=== PATIENT | female | born 1970 | race Caucasian/White ===

== ENCOUNTER → 2020-12-07 | Outpatient (CLI) | payer MEDICARE, OTHER | LOC: ORTHO 13:30 | PROVIDERS: ATTEND Orthopaedic Surgery | DX: G56.03 Carpal tunnel syndrome, bilateral upper limbs (principal) | CPT/HCPCS: 20526 ==

== ENCOUNTER → 2020-12-21 | Outpatient (CLI) | payer MEDICARE, OTHER ==
--- NOTE | 2020-12-21 10:37 | Diagnostic Imaging Report ---
INDICATION: Neck pain. TIME OF EXAM: 9:57 a.m. FINDINGS: AP, lateral, odontoid as well as both oblique views were obtained of the cervical spine. There is straightening of the normal cervical lordotic curvature. There are postoperative changes of ACDF with anterior plate and screws transfixing the C6-C7 levels. The hardware appears to be intact without fracture or loosening. There is degenerative disc disease at the C5-C6 level with disc space narrowing and marginal spurring. Right-sided neural foramen does appear to be narrowed at the C5-C6 level. Remaining neural foramina are patent. No fractures are seen. Prevertebral tissues are normal. Odontoid appears intact. IMPRESSION: Lower cervical degenerative changes as well as postsurgical changes, as described. No acute bony abnormality is detected. Dictated by: Dictated on workstation # [id number]
== END ==
LOC: ORTHO 09:16
PROVIDERS: ATTEND Orthopaedic Surgery
DX: M47.812 Spondylosis without myelopathy or radiculopathy, cervical region (principal); M50.322 Other cervical disc degeneration at C5-C6 level; M48.02 Spinal stenosis, cervical region
CPT/HCPCS: 72050; G0463; 99212

== ENCOUNTER → 2021-01-08 | Outpatient (CLI) | payer MEDICARE, OTHER ==
[~2021-01-08] MED LIST: ATOR40TA70 PO; CETI10CA PO; DIPH25CA79 PO; DULO60CA59 PO; GABA-490 PO; LISI20TA26 PO; MELO15TA39 PO; OMEP40CA6 PO; PREN1TAB79 PO; TRAZ-227 PO; UBID1CAP53 PO
--- NOTE | 2021-01-08 11:02 | Diagnostic Imaging Report ---
PROCEDURE: MR imaging cervical spine without contrast. TECHNIQUE: Multiplanar, multisequence MR imaging of the cervical spine was performed without contrast. INDICATION: Neck pain. COMPARISON: 12/21/2020. FINDINGS: No acute fracture or dislocation is seen in the cervical spine. ACDF changes are visualized at C6-C7. There is straightening of the cervical spine. The vertebral body heights are well maintained. The bone marrow signal is unremarkable. No focal osseous lesions. The craniocervical junction is maintained. The cervical spinal cord demonstrates normal intrinsic signal. No epidural collections are seen. The included brainstem and posterior fossa have normal appearance. Multilevel degenerative changes are seen in the cervical spine with posterior disc bulges and uncovertebral arthropathy. C2-C3: No significant spinal canal or foraminal stenosis. C3-C4: Uncovertebral arthropathy results in no significant spinal canal narrowing and mild right and no left foraminal narrowing. C4-C5: Uncovertebral arthropathy results in no significant spinal canal narrowing and [id number] right and no left foraminal narrowing. C5-C6: Posterior disc bulge with right paracentral protrusion, buckling of ligamentum flavum, and uncovertebral arthropathy results in moderate spinal canal stenosis, moderate right lateral recess stenosis, and moderate right and mild left foraminal narrowing. C6-C7: Left subarticular disc osteophyte complex and uncovertebral arthropathy results in no spinal canal narrowing, [id number] left lateral recess narrowing and no right and moderate left foraminal stenosis. C7-T1: No significant spinal canal or foraminal stenosis. The soft tissues of neck are unremarkable. IMPRESSION: 1. No acute fracture or dislocation of the cervical spine. 2. Multilevel degenerative changes in the cervical spine, greatest at C5-C6 and C6-C7. 3. ACDF changes at C6-C7. Dictated by: Dictated on workstation # [id number]
== END ==
LOC: RAD 09:03
PROVIDERS: ATTEND Orthopaedic Surgery
DX: M47.22 Other spondylosis with radiculopathy, cervical region (principal); Z98.1 Arthrodesis status
CPT/HCPCS: 72141

== ENCOUNTER 2021-01-11 11:38 | Outpatient (CLI) | payer MEDICARE, OTHER ==
[~2021-01-11] VITALS: Ht 167.6 cm; Wt 83.6 kg
[2021-01-11] MEDS ORDERED: PREN1TAB79 PO (12:25)
[2021-01-11] MEDS ORDERED: MELO15TA39 PO (12:25)
[2021-01-11] MEDS ORDERED: UBID1CAP53 PO (12:25)
[2021-01-11] MEDS ORDERED: GABA-490 PO (12:25)
[2021-01-11] MEDS ORDERED: CETI10CA PO (12:25)
[2021-01-11] MEDS ORDERED: LISI20TA26 PO (12:25)
[2021-01-11] MEDS ORDERED: DULO60CA59 PO (12:25)
[2021-01-11] MEDS ORDERED: TRAZ-227 PO (12:25)
[2021-01-11] MEDS ORDERED: OMEP40CA6 PO (12:25)
[2021-01-11] MEDS ORDERED: DIPH25CA79 PO (12:25)
[2021-01-11] MEDS ORDERED: ATOR40TA70 PO (12:25)
[2021-01-12] MEDS ORDERED: OXYC5TAB PO (11:20)
== END 2021-01-11 12:52 | disposition home or self-care (01) ==
LOC: PREOP 11:38
PROVIDERS: ATTEND Orthopaedic Surgery
DX: Z01.818 Encounter for other preprocedural examination (principal)

== ENCOUNTER 2021-01-12 08:08 | Day surgery (SDC) | payer MEDICARE, MEDICAID ==
[2021-01-12] VITALS (10 sets, daily range): BP systolic 112–141; BP diastolic 62–85
[~2021-01-12] VITALS: Ht 167.6 cm; Wt 83.6 kg
[2021-01-12] MEDS ORDERED: LACTATED RINGERS 1,000 ML IV PRN (08:15)
[2021-01-12] MEDS ORDERED: ceFAZolin INJECTION 1,000 MG VIAL IV ONE (08:15)
[2021-01-12] MEDS ORDERED: MIDAZOLAM 2 MG/2 ML (VERSED) VIAL ONE (09:43)
[2021-01-12] MEDS ORDERED: PROPOFOL INJECTION 50 ML IV ONE ×2 (09:43→10:49)
[2021-01-12] MEDS ORDERED: BUPIVACAINE 0.5% 30 ML (SENSORCAINE) VIAL ONE (09:44)
[2021-01-12] MEDS ORDERED: LIDOCAINE PF 0.5% 50 ML (XYLOCAINE) VIAL ONE (09:53)
[2021-01-12] MEDS ORDERED: OXYC5TAB PO (11:20)
--- NOTE | 2021-01-12 11:20 | Anesthesia-General Post-Op ---
MAC Patient Condition Mental Status/LOC: Same as Preop Cardiovascular: Satisfactory Nausea/Vomiting: Absent Respiratory: Satisfactory Pain: Controlled Complications: Absent Post Op Complications Complications None Follow Up Care/Instructions Patient Instructions None needed. Anesthesiology Discharge Order Discharge Order Patient is doing well, no complaints, stable vital signs, no apparent adverse anesthesia problems. No complications reported per nursing. NATALIIA LUNDY CRNA Jan 12, 2021 11:20
--- NOTE | 2021-01-12 11:25 | Operative Report - Ortho ---
Operative Report Surgeon (s)/Account Resolution Specialist (s) Surgeon FAB BURLESON MD Account Resolution Specialist n/a Pre-Operative Diagnosis LEFT CARPAL TUNNEL SYNDROME Post-Operative Diagnosis same Operative Report Date of Procedure: Jan 12, 2021 Name of Procedure Performed: Left Carpal Tunnel Release Description & Findings After obtaining informed consent and marking the patient in the preoperative holding area, the patient did receive IV antibiotics and was taken to the ope rating room. Neftaly block anesthesia was induced. The left upper extremity was prepped and draped in the usual sterile fashion. Incision was made just ulnar to the thenar crease. Blunt dissection was carried down to the palmar fascia. The fascia was divided in line revealing the transverse carpal ligament. Beginning distally and working proximally, the carpal tunnel was released. Nerve protector was put into place and the release was completed back to the level of the forearm fascia. Probe was inserted and the release was palpably complete. Wound was irrigated with normal saline and injected subcutaneously with local anesthetic. Wound was closed with 4-0 nylon and dressed with xeroform, 4x4s, sridevi, ABD, cast padding, and SILVIA wrap. Patient tolerated the procedure well and was stable to the recovery room. Anesthesia Type [place] Block Estimated Blood Loss Less than 10 mL Specimen(s) collected/removed None FAB BURLESON MD Jan 12, 2021 11:25
[2021-01-12] MEDS ORDERED: fentaNYL INJ 100 MCG/2 ML AMP IVP ONE (11:30)
[2021-01-12] MEDS ORDERED: ONDANSETRON 4 MG/2 ML (SDV) Z0FRAN IVP PRN (11:30)
[2021-01-12] MEDS ORDERED: MEPERIDINE (DEMEROL) INJ 50 MG/ML IVP ONE (11:30)
== END 2021-01-12 11:32 | disposition home or self-care (01) ==
LOC: SDC 08:08
PROVIDERS: ATTEND Orthopaedic Surgery
DX: G56.03 Carpal tunnel syndrome, bilateral upper limbs (principal); M47.812 Spondylosis without myelopathy or radiculopathy, cervical region; I10 Essential (primary) hypertension; K21.9 Gastro-esophageal reflux disease without esophagitis; Z79.899 Other long term (current) drug therapy; M19.90 Unspecified osteoarthritis, unspecified site; Z79.1 Long term (current) use of non-steroidal anti-inflammatories (NSAID); Z87.891 Personal history of nicotine dependence; E78.5 Hyperlipidemia, unspecified; F41.9 Anxiety disorder, unspecified; G47.00 Insomnia, unspecified; Z98.1 Arthrodesis status
CPT/HCPCS: 87081

== ENCOUNTER → 2021-01-23 | Outpatient (CLI) | payer MEDICARE, MEDICAID ==
[~2021-01-23] MED LIST changes: +OXYC5TAB PO
== END ==
LOC: ORTHO 10:30
PROVIDERS: ATTEND Orthopaedic Surgery
DX: G56.03 Carpal tunnel syndrome, bilateral upper limbs (principal); M47.812 Spondylosis without myelopathy or radiculopathy, cervical region; Z98.890 Other specified postprocedural states; Z79.1 Long term (current) use of non-steroidal anti-inflammatories (NSAID); Z79.891 Long term (current) use of opiate analgesic; Z79.899 Other long term (current) drug therapy